=== PATIENT | female | born 1980 | race Caucasian/White ===

== ENCOUNTER 2016-06-30 21:17 | Emergency (ER) | payer BC, OTHER ==
[~2016-06-30] VITALS: Ht 170.2 cm; Wt 94.6 kg
[~2016-06-30 21:17] MED LIST: IBUP-15 PO; LEVO75TA4 PO; OXYC1TAB87 PO; PREN-94 PO
--- OUTSIDE RECORDS SUMMARY | 2016-06-30 21:20 | XMS REPORT | Continuity of Care Document ---
Author Author [facility] Address Unknown Phone Unavailable Allergies Active Description Code Type Severity Reaction Onset Reported/Identified Relationship to Patient Clinical Status Yes aspirin [id number] Drug Allergy Mild Vomiting 01/08/2014 Yes latex [id number] Drug Allergy Mild Rash 01/08/2014 Medications Problems Date Dx Coded Attending Type Code Diagnosis Diagnosed By 01/11/2014 ARPITA VALDES, RAYMUNDO Lambert Ot 244.9 01/11/2014 ARPITA VALDES, RAYMUNDO Lambert Ot 614.6 01/11/2014 ARPITA VALDES, RAYMUNDO Lambert Ot 648.11 01/11/2014 ARPITA VALDES, RAYMUNDO Lambert Ot 648.91 01/11/2014 ARPITA VALDES, RAYMUNDO Lambert Ot 654.21 01/11/2014 ARPITA VALDES, RAYMUNDO Lambert Ot V25.2 01/11/2014 ARPITA VALDES, RAYMUNDO Lambert Ot V27.0 04/13/2015 Ot E03.9 04/20/2015 Ot E03.9 05/25/2015 Ot E03.9 05/28/2015 Ot E03.9 Procedures Results Encounters ACCT No. Visit Date/Time Discharge Status Pt. Type Provider Facility Loc./Unit Complaint [id number] 03/05/2014 12:25:00 2014 23:59:59 CLS Outpatient ZABRINA VALDES, REILLY Alejandro [facility] LAB [id number] 01/08/2014 07:57:00 2013 12:55:00 DIS Inpatient ARPITA VALDES, RAYMUNDO [facility] OB [id number] 12/14/2013 15:11:00 2013 23:59:59 CLS Outpatient [id number] 11/12/2013 13:43:00 2013 23:59:59 CLS Outpatient [id number] 09/09/2013 14:26:00 2013 23:59:59 CLS Outpatient [id number] 08/10/2013 13:09:00 2013 23:59:59 CLS Outpatient [id number] 07/03/2013 10:04:00 2013 23:59:59 CLS Outpatient [id number] 03/25/2015 15:05:00 Document Registration
--- OUTSIDE RECORDS SUMMARY | 2016-06-30 21:26 | XMS REPORT | Continuity of Care Document ---
Author Author [facility] Address Unknown Phone Unavailable Allergies Active Description Code Type Severity Reaction Onset Reported/Identified Relationship to Patient Clinical Status Yes aspirin [id number] Drug Allergy Mild Vomiting 01/08/2014 Yes latex [id number] Drug Allergy Mild Rash 01/08/2014 Medications Problems [...] Status Pt. Type Provider Facility Loc./Unit Complaint [id number] 03/05/2014 12:25:00 2014 23:59:59 CLS Outpatient ZABRINA VALDES, REILLY Alejandro [facility] LAB [id number] 01/08/2014 07:57:00 2013 12:55:00 DIS Inpatient ARPITA VALDES, RAYMUNDO [facility] OB [id number] 12/14/2013 15:11:00 2013 23:59:59 CLS Outpatient [id number] 11/12/2013 13:43:00 2013 23:59:59 CLS Outpatient [id number] 09/09/2013 14:26:00 2013 23:59:59 CLS Outpatient [id number] 08/10/2013 13:09:00 2013 23:59:59 CLS Outpatient [id number] 07/03/2013 10:04:00 2013 23:59:59 CLS Outpatient [id number] 03/25/2015 15:05:00 Document Registration
[2016-06-30] MEDS ORDERED: ONDANSETRON 2 MG/ML (Z0FRAN) 2 ML VIAL IV ONE (21:35)
[2016-06-30] MEDS ORDERED: GI COCKTAIL 55 ML UDC PO ONE (21:35)
[2016-06-30] MEDS ORDERED: SODIUM CHLORIDE FLUSH 10 ML SYR IV PRN (21:35)
[2016-06-30] MEDS ORDERED: SODIUM CHLORIDE FLUSH 3 ML SYR IV PRN (21:35)
[2016-06-30] MEDS ORDERED: ALBU2.5V4 INH (21:53)
[2016-06-30] MEDS ORDERED: ALBU6.7H IH (21:54)
[2016-06-30] MEDS ORDERED: BELLADONNA/PHENOBARBITAL ELIXIR (DONNATAL) 10 ML UDC ONE (22:00)
[2016-06-30] MEDS ORDERED: LIDOCAINE 2% VISCOUS 20ML UDC PO ONE (22:00)
[2016-06-30] MEDS ORDERED: MAG HYDROX/AL HYDROX/SIMETH 400-400-40/5 ML (MAG-AL PLUS XS) 30 ML UDC ONE (22:00)
[2016-06-30 22:18] LABS: BASOPHILS % (AUTO) 0 % (0-2); EOSINOPHILS # (AUTO) 0.1 10^3uL; EOSINOPHILS % (AUTO) 1 % (0-4); LYMPHOCYTES # (AUTO) 2.3 X10^3; MEAN CORPUSCULAR HEMOGLOBIN 28.7 PG (26.0-34.0); MEAN CORPUSCULAR HGB CONC 34.9 g/dL (31.0-37.0); MEAN CORPUSCULAR VOLUME 82 FL (80-100); MEAN PLATELET VOLUME 11.8 FL (6.0-9.5); MONOCYTES # (AUTO) 1.6 X10^3; MONOCYTES % (AUTO) 9 % (3-11); NEUTROPHILS # (AUTO) 13.4 X10^3; NEUTROPHILS % (AUTO) 77 % (51-67); PLATELET COUNT 271 10^3uL (150-450); WHITE BLOOD COUNT 17.55 10^3uL (4.0-11.0)
[2016-06-30] MEDS ORDERED: KETOROLAC 30 MG/ML (TORADOL) 1 ML VIAL IV ONE (22:30)
[2016-06-30 23:03] LABS: ALBUMIN 4.1 g/dL (3.4-5.0); ALKALINE PHOSPHATASE 97 U/L (38-126); AMYLASE* 56 U/L (25-115); ANION GAP 16.1 MEQ/L (3-15); BUN/CREATININE RATIO 13 (10-20); CALCULATED IONIZED CALCIUM 3.7 mg/dL (3.8-4.6); LIPASE* 56 U/L (23-300); TOTAL PROTEIN 7.8 g/dL (6.4-8.5)
[2016-07-01 01:10] LABS: COLOR,URINE Amber; GLUCOSE, URINE (UA) Negative (Negative); LEUKOCYTE ESTERASE ,URINE Negative (Negative)
[2016-07-01 01:32] LABS: BILIRUBIN,URINE 1+ (Negative); CLARITY,URINE Slightly Cloudy
[2016-07-01 01:35] LABS: RBC,URINE None Seen /HPF; URINE CENTRIFUGED VOLUME 12 mL
[2016-07-01] MEDS ORDERED: HYDROmorphone 1 MG/ML (DILAUDID) SYRINGE IV ONE (01:45)
[2016-07-01] MEDS ORDERED: ONDANSETRON 2 MG/ML (Z0FRAN) 2 ML VIAL IV ONE (01:45)
[2016-07-01 02:02] VITALS: BP 144/73
--- NOTE | 2016-07-01 08:16 | Diagnostic Imaging Report ---
INDICATION: Epigastric and back pain. 3 views were obtained. FINDINGS: The heart size is normal. Lungs are clear. Bowel gas pattern is nonspecific. There is no free air. There are no abnormal abdominal calcifications. IMPRESSION: Nonspecific bowel gas pattern. No acute cardiopulmonary abnormality. Dictated by: Dictated on workstation # [id number]
== END 2016-07-01 02:03 | disposition home or self-care (01) ==
LOC: ED 21:21
DX: R10.84 Generalized abdominal pain (principal); F17.210 Nicotine dependence, cigarettes, uncomplicated
CPT/HCPCS: 36415; 74022; 80053; 81003; 81015; 82150; 83690; 84484; 84703; 85025; 86140; 93005; 96361; 96374; 96375; 96376; 99285; J1170; J1885; J2405; J7030; 99283

== ENCOUNTER 2016-07-02 12:59 | Observation (INO) | payer OTHER ==
[2016-07-02] VITALS (12 sets, daily range): BP systolic 102–129; BP diastolic 62–79
[~2016-07-02] VITALS: Ht 170.2 cm; Wt 92.7 kg
--- NOTE | 2016-07-02 11:41 | Diagnostic Imaging Report ---
PROCEDURE: US Gallbladder. TECHNIQUE: Multiple real-time grayscale images were obtained over the right upper quadrant in various projections. INDICATION: Right upper quadrant abdominal pain No focal hepatic abnormality is identified. There is thickening of the gallbladder wall reaching 0.7 cm. In addition, there is an echogenic focus of approximately 1.3 cm in size at the level of the gallbladder neck. No pericholecystic fluid is identified. Common bile duct reaches 0.7 cm in diameter. Pancreas is obscured. No right renal abnormality was documented and there is no evidence of free fluid seen. IMPRESSION: Calculus in the gallbladder neck with gallbladder wall thickening. This may represent developing cholecystitis and clinical correlation is recommended. There is dilatation of the common bile duct as well. This could be related to previous stone passage. Hepatobiliary scan may be of value for assessment of the biliary ductal patency. Dictated by: Dictated on workstation # [id number]
[~2016-07-02 12:59] MED LIST changes: +ALBU2.5V4 INH; +ALBU6.7H IH
--- OUTSIDE RECORDS SUMMARY | 2016-07-02 13:02 | XMS REPORT | Continuity of Care Document ---
Author Author [facility] Address Unknown Phone Unavailable Allergies Active Description Code Type Severity Reaction Onset Reported/Identified Relationship to Patient Clinical Status Yes aspirin [id number] Drug Allergy Mild Vomiting 01/08/2014 Yes latex [id number] Drug Allergy Mild Rash 01/08/2014 Medications Problems Date Dx Coded Attending Type Code Diagnosis Diagnosed By 01/11/2014 ARPITA VALDES, RAYMUNDO Lambert Ot 244.9 01/11/2014 ARPITA VALDES, RAYMUNDO Lambert Ot 614.6 01/11/2014 ARPITA VALDES, RAYMUNDO Lambert Ot 648.11 01/11/2014 ARPITA VALDES, RAYMUNDO Lambert Ot 648.91 01/11/2014 ARPITA VALDES, RAYMUNDO Lambert Ot 654.21 01/11/2014 ARPITA VALDSE, RAYMUNDO Lambert Ot V25.2 01/11/2014 ARPITA VALDES, RAYMUNDO Lambert Ot V27.0 04/13/2015 Ot E03.9 04/20/2015 Ot E03.9 05/25/2015 Ot E03.9 05/28/2015 Ot E03.9 Procedures Results Test Result Range Complete blood count (CBC) with automated white blood cell (WBC) differential - 06/30/16 22:40 Blood automated leukocyte count 17.55 4.0-11.0 Erythrocytes 5.05 4.00-5.00 12.0-16.0;g/dL 14.5 12.0-15.5 Hematocrit 41.50 35.00-45.00 Automated erythrocyte mean corpuscular volume 82 80-100 Mean corpuscular hemoglobin (MCH) determination 28.7 26.0-34.0 Automated erythrocyte mean corpuscular hemoglobin concentration measurement ( mass/volume) 34.9 31.0-37.0 Erythrocyte distribution width 13.3 11.8 -15.6 Automated blood platelet count 271 150- 450 Automated blood platelet mean volume measurement 11.8 6.0-9.5 Automated neutrophil percentage 77 51- 67 Lymphocytes/100 leukocytes 13 20-46 Automated monocyte percentage 9 3-11 Eosinophil count auto 1 0-4 Automated basophil percentage 0 0-2 Automated blood neutrophil count 13.4 Blood lymphocytes count (number/volume) 2.3 Automated blood monocyte count 1.6 Blood absolute eosinophil count 0.1 Basophils 0.0 Serum or plasma choriogonadotropin ( test) detection - 06/30/16 22:40 Serum or plasma choriogonadotropin ( test) detection Negative Negative Comprehensive metabolic panel - 06/30/16 22:40 Sodium measurement 119 70-110 CARBON DIOXIDE 26 22-29 Serum or plasma anion gap 16.1 3-15 BLOOD UREA NITROGEN 13 7-18 CREATININE SERUM 1.00 0.6-1.2 Brucella species antibody panel (IgG, IgM) 13 10-20 Estimated glomerular filtration rate (GFR) 75.9 Estimated glomerular filtration rate (GFR) non- 62.7 OSMOLALITY,CALCULATED 270 280-300 CALCIUM 8.9 8.8-10.8 Calculated ionized calcium measurement 3.7 3.8-4.6 BILIRUBIN,TOTAL 0.8 0.1-1.0 Serum or plasma alkaline phosphatase measurement 97 38-126 ASPARTATE AMINO TRANSFERASE 40 15-37 ALANINE AMINOTRANSFERASE 43 30-65 Serum or plasma total protein measurement 7.8 6.4-8.5 Serum or plasma albumin measurement 4.1 3.4-5.0 Serum or plasma albumin/globulin mass ratio 1.108 1.1-1.8 TROPONIN I* - 06/30/16 22:40 TROPONIN I < 0.012 0.010-0.080 Serum or plasma amylase measurement - 06/30/16 22:40 Serum or plasma amylase measurement 56 25-115 Lipase measurement - 06/30/16 22:40 Lipase measurement 56 23-300 C REACTIVE PROTEIN* - 06/30/16 22:40 C REACTIVE PROTEIN* 3.50 0.0-0.9 UA CULTURE IF INDICATED* - 07/01/16 00:50 COLLECTION METHOD CLEAN CATCH Color of urine by auto Ketty Urine appearance determination Slightly Cloudy Urine pH measurement by automated test strip 7.0 5.0 - 8.0 Specific gravity of urine by automated test strip 1.020 1.005-1.030 Urine protein measurement by test strip (mass/volume) 1+ Negative Urine glucose detection by automated test strip Negative Negative Urine erythrocytes count by automated test strip (number/volume) Negative Negative Urine ketones detection by automated test strip 2+ Negative Urine nitrite detection by test strip Negative Negative Urine total bilirubin detection by automated test strip 1+ Negative Urine urobilinogen measurement by automated test strip (mass/volume) 2.0 0.2-1.0 Urine leukocyte esterase detection by dipstick Negative Negative Microscopic examination of urine - 07/01/16 00:50 Urine volume measurement 12 mL Urine erythrocytes detection by automated method None Seen Automated urine sediment leukocyte count by microscopy (number/high power field ) None Seen Bacteria Rare SQUAMOUS EPITHELIAL CELL,UR 5-10 MUCOUS,URINE 1+ Encounters ACCT No. Visit Date/Time Discharge Status Pt. Type Provider Facility Loc./Unit Complaint [id number] 03/05/2014 12:25:00 2014 23:59:59 CLS Outpatient ZABRINA VALDES, [facility] LAB [id number] 01/08/2014 07:57:00 2013 12:55:00 DIS Inpatient ARPITA VALDES, [facility] OB [id number] 12/14/2013 15:11:00 2013 23:59:59 CLS Outpatient [id number] 11/12/2013 13:43:00 2013 23:59:59 CLS Outpatient [id number] 09/09/2013 14:26:00 2013 23:59:59 CLS Outpatient [id number] 08/10/2013 13:09:00 2013 23:59:59 CLS Outpatient [id number] 07/03/2013 10:04:00 2013 23:59:59 CLS Outpatient [id number] 06/30/2016 22:52:00 Document Registration [id number] 03/25/2015 15:05:00 Document Registration
[2016-07-02] MEDS ORDERED: BUPIVACAINE/EPINEPHRINE 0.5%-1:200,000 (MARCAINE) 30 ML VIAL INJ ONE (13:08)
[2016-07-02] MEDS ORDERED: ceFAZolin 2,000 MG in WATER (STERILE) FOR INJECTION 20 ML IV SCH (13:10)
[2016-07-02 13:17] LABS: MEAN CORPUSCULAR HEMOGLOBIN 28.3 PG (26.0-34.0); MEAN CORPUSCULAR HGB CONC 33.4 g/dL (31.0-37.0); MEAN CORPUSCULAR VOLUME 85 FL (80-100); MEAN PLATELET VOLUME 11.6 FL (6.0-9.5); PLATELET COUNT 233 10^3uL (150-450); WHITE BLOOD COUNT 23.23 10^3uL (4.0-11.0)
[2016-07-02 13:22] LABS: BAND NEUTROPHILS % 2 % (0-6); EOSINOPHILS % 0 % (0-4); LYMPHOCYTES # 1.9 #; MONOCYTES # 0.7 #; MONOCYTES % 3 % (3-11); SEGMENTED NEUTROPHILS % 87 % (51-67); TOTAL CELLS COUNTED 100
[2016-07-02 13:23] LABS: RBC MORPH NORMAL (NORMAL)
[2016-07-02 13:27] LABS: ALBUMIN 4.1 g/dL (3.4-5.0); ANION GAP 17.1 MEQ/L (3-15); CALCULATED IONIZED CALCIUM 3.7 mg/dL (3.8-4.6); TOTAL PROTEIN 8.4 g/dL (6.4-8.5)
[2016-07-02] MEDS: LACTATED RINGERS 1,000 ML IV SCH (13:35)
[2016-07-02] MEDS: SODIUM CHLORIDE FLUSH 3 ML SYR IV PRN (13:35)
[2016-07-02] MEDS ORDERED: ceFAZolin 1000 MG (ANCEF) VIAL ONE (13:36)
[2016-07-02] MEDS ORDERED: SODIUM CHLORIDE VIAL (PF) 20 ML IV ONE (13:36)
[2016-07-02] MEDS ORDERED: MIDAZOLAM 2 MG/2 ML (VERSED) VIAL ONE (14:07)
[2016-07-02] MEDS ORDERED: ALFENTANIL 500 MCG/ML (ALFENTA) 5 ML AMP IV ONE (14:07)
[2016-07-02] MEDS ORDERED: PROPOFOL 20 ML IV ONE (14:08)
[2016-07-02] MEDS ORDERED: SUCCINYLCHOLINE 20 MG/ML 10 ML VIAL ONE (14:21)
[2016-07-02] MEDS ORDERED: diphenhydrAMINE 50 MG/ML INJ (BENADRYL) ONE (14:32)
[2016-07-02] MEDS ORDERED: ONDANSETRON 2 MG/ML (Z0FRAN) 2 ML VIAL ONE (14:32)
[2016-07-02] MEDS ORDERED: NEOSTIGMINE 1 MG/ML SYRINGE ONE (14:55)
[2016-07-02] MEDS ORDERED: GLYCOPYRROLATE 0.2 MG/ML (ROBINUL) 1 ML VIAL ONE (14:55)
[2016-07-02] MEDS ORDERED: ROCURONIUM 50 MG/5 ML (ZEMURON) VIAL IV ONE (15:13)
[2016-07-02] MEDS ORDERED: HYDROmorphone 2 MG/ML (DILAUDID) 1 ML SYRINGE ONE (16:27)
[2016-07-02] MEDS ORDERED: METOCLOPRAMIDE 10 MG/2 ML (REGLAN) VIAL IV PRN (16:55)
[2016-07-02] MEDS ORDERED: ONDANSETRON 2 MG/ML (Z0FRAN) 2 ML VIAL IV PRN (16:55)
--- NOTE | 2016-07-02 17:17 | Diagnostic Imaging Report ---
INDICATION: Undergoing cholecystectomy. FINDINGS: Single intraoperative cholangiogram images are submitted. There is cannulation of the extra hepatic biliary tree. Images demonstrate contrast opacification of the biliary system. Biliary tree is not significantly dilated. There was no persistent filling defect to indicate a retained stone. Flow was present into the duodenum. IMPRESSION: Negative laparoscopic cholangiogram. Correlation with intraoperative findings recommended. Dictated by: Dictated on workstation # [id number]
--- NOTE | 2016-07-02 17:30 | NUR ---
Pt admitted to 319 via bed accompanied by Lizzeth, OR RNs. Pt is quite groggy still. Skin warm, dry. 5 lap incisions; drsgs CDI. Resprs nonlabored, even on 3L NC, 96 %. Titrated to 2L. SL to RAC intact. Will continue to monitor.
--- NOTE | 2016-07-02 18:20 | NUR ---
PRN Ultram given at this time for c/o incisional pain rated 6/10. Pt continues to be groggy, but rouses easily. Post op VS continue. SL intact. Denies other needs.
[2016-07-02] MEDS: morphine INJ 4 MG/ML 1 ML SYRINGE IV PRN (21:22)
--- NOTE | 2016-07-03 | NUR ---
Pt c/o migraine. O2 sat 85% on RA. HR 135. Oxygen applied at 2L. O2 sat increases to 92%. PRN ultram provided for pain.
[2016-07-03 00:03] VITALS: BP 125/80
--- NOTE | 2016-07-03 00:10 | NUR ---
Heart rate now 125.
[2016-07-03] MEDS: morphine INJ 4 MG/ML 1 ML SYRINGE IV PRN ×2 (01:00→07:38)
[2016-07-03 03:48] VITALS: BP 120/76
--- NOTE | 2016-07-03 06:25 | NUR ---
Pt rests in short intervals throughout the night. c/o incisional abd pain and "migraine." PRN medications provided. Noted that pt's heart rate has remained in 120s throughout the shift. Denies chest pain. Cont on 2L oxygen per nc d/t low o2 sat.
[2016-07-03] MEDS ORDERED: SODIUM CHLORIDE FLUSH 10 ML ONE (07:34)
[2016-07-03 07:36] VITALS: BP 116/73
[2016-07-03] MEDS ORDERED: TRM50T PO (08:02)
--- NOTE | 2016-07-03 08:15 | Progress Note-A/P (E) ---
Progress Note Subjective Subjective Has been tachycardic overnight; temp this morning is 100.0. Complains of headache along with abdominal pain. Taking liquids fairly well. Objective VS Vital Signs Date Time Temp Pulse Resp B/P Pulse Ox O2 Delivery O2 Flow Rate FiO2 07/03/16 07:36 100.0 122 18 116/73 94 Room air 07/03/16 03:48 2.00 I&O I & O Past 24 hrs 07/03/16 07:00 Intake Total 900 ml Output Total 775 ml Balance 125 ml Intake Oral 900 ml Output Urine Total 775 ml Current Medications Current Medications Lactated Ringer's 1,000 ml @ 50 mls/hr Q20H IV Last administered on 07/02/16 13 :35; Admin Dose 50 MLS/HR; Start 07/02/16 at 13:05 Morphine Sulfate 1-4MG IV Q1H PRN PAIN Q1H PRN IV Last administered on 07:38; Admin Dose 2 MG; Start 07/02/16 at 16:55 Tramadol HCl 100 mg Q4H PRN PO Last administered on 07/03/16 06:15; Admin Dose 100 MG; Start 07/02/16 at 16:55 Ondansetron HCl 4 mg Q6H PRN IV; Start 07/02/16 at 16:55 Metoclopramide HCl 10 mg Q6H PRN IV; Start 07/02/16 at 16:55 General Awake, alert, no acute distress. CV S1S2 RRR Lungs Clear bilaterally Abdomen Distended, dressings intact. Extremities No edema Integumentary No jaundice Neuro Grossly normal Labs, Most Recent- Laboratory Results Past 24 Hrs 07/02/16 13:10: Absolute Band Neutrophils 0.5, Alanine Aminotransferase (ALT/SGPT) 47, Albumin 4.1, Albumin/Globulin Ratio 0.953, Alkaline Phosphatase 143, Anion Gap 17.1, Aspartate Amino Transf (AST/SGOT) 24, BUN/Creatinine Ratio 8, Band Neutrophils % 2, Basophils # (Auto) , Basophils # (Manual) 0.0, Basophils % (Manual) 0, Basophils (%) (Auto) , Blood Morphology Comment Normal, Blood Urea Nitrogen 8, Calcium Level 9.2, Calcium/Ionized Calcium Ratio 3.7, Calculated Osmolality 264 , Carbon Dioxide Level 24, Chloride Level 101, Creatinine 0.95, Differential Total Cells Counted 100, Eosinophils # 0.0, Eosinophils # (Auto) , Eosinophils % (Manual) 0, Eosinophils (%) (Auto) , Estimat Glomerular Filtration Rate 80.5, Estimated GFR (Non- 66.6, Glucose Level 96, Hematocrit 44.30, Hemoglobin 14.8, Lipase 35, Lymphocytes # 1.9, Lymphocytes # (Auto) , Lymphocytes % (Manual) 8, Lymphocytes (%) (Auto) , Mean Corpuscular Hemoglobin 28.3, Mean Corpuscular Hemoglobin Concent 33.4, Mean Corpuscular Volume 85, Mean Platelet Volume 11.6, Metamyelocytes % 0, Monocytes # 0.7, Monocytes # ( Auto) , Monocytes % (Manual) 3, Monocytes (%) (Auto) , Neutrophils # 20.2, Neutrophils # (Auto) , Neutrophils (%) (Auto) , Platelet Count 233, Potassium Level 4.2, Red Blood Count 5.23, Red Cell Distribution Width 13.5, Segmented Neutrophils % 87, Serum Test, Qualitative Negative, Sodium Level 137, Total Bilirubin 1.6, Total Protein 8.4, White Blood Count 23.23 24 Hr Result Diagram CBC BMP Last 24 Hrs 07/02/16 13:10 Assessment POD#1 lap cholecystectomy Gallbladder hydrops Plan Will check labs this morning and administer fluid bolus. Tachycardia may be secondary to dehdration and hypovolemia or pain. Will follow closely. DONNA JEFFERY MD July 03, 2016 08:15
[2016-07-03 08:19] LABS: MEAN CORPUSCULAR HEMOGLOBIN 28.3 PG (26.0-34.0); MEAN CORPUSCULAR HGB CONC 32.9 g/dL (31.0-37.0); MEAN CORPUSCULAR VOLUME 86 FL (80-100); MEAN PLATELET VOLUME 11.9 FL (6.0-9.5); PLATELET COUNT 234 10^3uL (150-450); WHITE BLOOD COUNT 20.57 10^3uL (4.0-11.0)
[2016-07-03 08:38] LABS: ALBUMIN 3.5 g/dL (3.4-5.0); ANION GAP 16.8 MEQ/L (3-15); BAND NEUTROPHILS % 0 % (0-6); CALCULATED IONIZED CALCIUM 3.8 mg/dL (3.8-4.6); EOSINOPHILS % 0 % (0-4); LYMPHOCYTES # 1.2 #; MONOCYTES # 1.8 #; MONOCYTES % 9 % (3-11); RBC MORPH NORMAL (NORMAL); SEGMENTED NEUTROPHILS % 85 % (51-67); TOTAL CELLS COUNTED 100; TOTAL PROTEIN 7.2 g/dL (6.4-8.5)
[2016-07-03] MEDS: KETOROLAC 30 MG/ML (TORADOL) 1 ML VIAL IV PRN ×3 (08:59→23:22)
[2016-07-03] MEDS: LACTATED RINGERS 1,000 ML IV SCH (09:05)
--- NOTE | 2016-07-03 09:09 | OPERATIVE REPORT ---
DATE OF OPERATION: 07/02/2016 PRE-OPERATIVE DIAGNOSIS: Acute cholelithiasis POST-OPERATIVE DIAGNOSIS: Gallbladder hydrops OPERATIVE PROCEDURE: Laparoscopic cholecystectomy with intraoperative cholangiogram SURGEON: Calvin Bishop MD GRAY TENDER: ABEL Corral ANESTHESIA: General endotracheal anesthetic INDICATION: The patient is a 35-year-old referred by Tayler Dominguez and Dr. Delgado for abdominal pain, leukocytosis, and imaging studies suggesting cholecystitis. She was taken to the operating room urgently for laparoscopic cholecystectomy. DESCRIPTION OF PROCEDURE: The patient was informed of the risks and benefits and agreed to proceed. She was administered preoperative IV antibiotics and then taken to the operating room. There she was placed supine on a standard operating table and administered general endotracheal anesthetic. When properly anesthetized the abdomen was prepped and draped in the standard sterile fashion. The open technique was used to access the peritoneal cavity through a curvilinear incision above the umbilicus and #0 Vicryl stay sutures were placed in the fascia. A 10-mm port was inserted and CO2 was insufflated to 15 mmHg. The Olympus 10-mm 3-D laparoscope was used. The patient was placed in reverse Trendelenburg position and turned slightly to the left. There were adhesions between the omentum and the edge of the right lobe of the liver anteriorly that had to be in order to expose the gallbladder. This was done mostly with blunt dissection and careful use of the laparoscopic scissors. The gallbladder was seen underneath the omentum. It was tense and distended and very edematous. Additional trocars were placed in the in the right upper quadrant and two separate 5-mm trocars. These were used for retraction throughout the case. The 3-prong grasper was used to manipulate the fundus of the gallbladder after the gallbladder was aspirated of its contents with the laparoscopic needle. The contents were mostly clear mucus consistent with gallbladder hydrops. The fundus was then able to be retracted superiorly. The lower portion of the gallbladder was freed of adhesions carefully using a combination of blunt dissection and the laparoscopic scissors, but most of this was facilitated with the suction device. There was significant soft tissue below the infundibulum of the gallbladder that obscured the view, and therefore a 10-mm port was placed in the right lower quadrant for the fan retractor, which aided in our visualization by retracting these soft tissue structures slightly inferiorly. I was then able to begin dissection using the suction device along the inferior edge of the infundibulum medially and then laterally using cautery to open the thickened peritoneum, exposing the gallbladder edge. This dissection was carried more proximally on the gallbladder on its lateral aspect and then careful meticulous dissection with electrocautery along the infundibulum allowed me to expose the cystic duct. Some blunt dissection was used to create a window posterior to the duct, within the triangle of Calot. The cystic artery could be seen within the triangle, and there was significant edema in the rest of the tissue including the peritoneum that made visualization of the entire triangle difficult. The cystic duct appeared to be fairly small and could be seen entering the gallbladder, and so i was comfortable placing a clip in it proximally. A cholangiogram was then obtained through the cystic duct that showed normal intrahepatic and extrahepatic ducts with no filling defects or extravasation. The catheter was removed from the cystic duct. Two clips were placed distally on the cystic duct and it was divided between the proximal clips. Additional gentle blunt dissection and cautery were used to isolate the cystic artery, which was clipped twice proximally, once distally and divided between the distal clips. The gallbladder was then able to be carefully removed from its attachments to the liver, which was more difficult than usual due to the degree of inflammation. The gallbladder was peeled off the gallbladder fossa and cautery was used in significant amounts to accomplish this. At the dome of the gallbladder, the wall was entered and there was some slightly purulent drainage that leaked out into the gallbladder fossa. There were no stones spilled from the gallbladder. This drainage was later suctioned and then the area was washed with sterile saline. The gallbladder was removed using an endobag under direct visualization through the umbilical port site. A small portion of the posterior wall of the gallbladder was still adherent in the gallbladder fossa, and this was removed without difficulty using blunt dissection along with cautery. This was removed. Inspection of the gallbladder fossa revealed no bleeding. We copiously irrigated the upper quadrant around the right lobe of the liver and beneath it, aspirating the contents. The clips were intact on the cystic duct and the cystic artery. The fan retractor had been removed earlier in the case, and this trocar was removed under direct vision from the right lower quadrant. No bleeding was seen from the opening. Due to the tangent nature of the tract, and the proximity to the distended right colon, I decided not to close the fascia using the Andrew-Lester device. The upper trocars were removed under direct vision and no bleeding was seen from the abdominal wall. The umbilical port was removed after the CO2 was let out of the abdomen. The #0 Vicryl stay sutures were tied at the umbical site and one additional #0 Vicryl suture was placed to completely close the fascial defect. The skin was then closed at all 5 incisions with subcuticular 4-0 Monocryl and dressings were applied. The patient tolerated the procedure without complications. She went to recovery in stable condition.
--- NOTE | 2016-07-03 09:17 | NUR ---
Pt up to bathroom, voids 300ml john urine. IVF bolus of NS @999ml/hr infuisng to LAC without difficulty. Still rates migraine and abd pain 10/11- Ketoralac 30mg IV given as ordered. Titrated O2 from 2L nc to 3L nc due to sats only 85% on 2L nc. O2 increases to 87-88% on 3L nc- will turn up to 4L nc. Pt states she is unable to take deep breaths because of abd pain. Sixto Bright RT notified. HR is 117 at this time. will cont to monitor.
--- NOTE | 2016-07-03 10:28 | NUR ---
Med Rec completed via conversation with patient.
--- NOTE | 2016-07-03 10:34 | NUR ---
SpO2 97% on 4Lpm nasal cannula. States she is doing better after pain med given. Decreased O2 to 3Lpm. Instructed on IS and worked at 500-750 X 6. States too much pain to do more. Encouraged to work on q1hr and importance of taking deep breaths. SpO2 93-94% on 3Lpm nasal cannula.
--- NOTE | 2016-07-03 11:30 | NUR ---
Pt given foam ear pads for canula, IS encouraged, Pt has poor effort with no breath hold. I explained the need for deep breathing and the possible outcome if deep breathing isn't done, She still didnt want to give much effort due to pain. Pt achieved 250 ml of 2800 predicted.
[2016-07-03 12:32] VITALS: BP 107/64
[2016-07-03] MEDS ORDERED: CALCIUM CARBONATE CHEWABLE 300 MG (TUMS) TABLET PO PRN (16:15)
[2016-07-03 16:25] VITALS: BP 120/73
--- NOTE | 2016-07-03 16:36 | NUR ---
@ 1000 NS Bolus complete- SL IV at this time. Remains 4L nc. Pt has been indep in room today. After morning dose of Ketoralac pt states pain is improved at 5/10- ambulated halls x1/2 lap. Changed dressing to umbilicus- saturated. @1630 Pt given Tums 3 tabs for acid reflux. States she would like to take Ketoralac again around 1730 to help her sleep tonight Addendum: 07/03/16 at 1638 by Spring Cardona RN @1600- HR 96, O2 sats 92% RA.
--- NOTE | 2016-07-03 17:39 | NUR ---
Ketoralac 30mg IV given for increasing headache and abd pain rated 08/11. Addendum: 07/03/16 at 1741 by Spring Cardona RN O2 placed at 2L nc- Sats on RA 86%
--- NOTE | 2016-07-03 18:43 | NUR ---
Pt ambulating halls indep on RA- Ambulatory O2 sats 84%. 2L n/c O2 placed and ambulating. Bernard RT notified. Back to room 2L nc. Will cont to monitor.
--- NOTE | 2016-07-03 19:00 | NUR ---
Pt is on 2 l/min NC with SPO2 91%, IS encouraged, 500 ml with moderate breath hold. Pt is resisting full breaths due to pain.
--- NOTE | 2016-07-03 19:30 | NUR ---
Pt is resting in bed watching tv, alert and oriented x 4, wearing 2LPM via NC, rates pain 3/10 at this time. Denies needs at this time. Call light is in reach. Will continue to monitor.
[2016-07-03 19:57] VITALS: BP 115/75
--- NOTE | 2016-07-03 23:45 | NUR ---
Pt is up to restroom and reports having pain. Rates 7/10, gave Toradol 30mg SIVP for discomfort at this time. Will continue to monitor.
[2016-07-04 00:13] VITALS: BP 129/85
[2016-07-04 03:50] VITALS: BP 115/75
--- NOTE | 2016-07-04 04:43 | NUR ---
Pt is resting in bed asleep, does not appear in pain or discomfort at this time. Will continue to monitor.
[2016-07-04] MEDS: LACTATED RINGERS 1,000 ML IV SCH (04:46)
[2016-07-04] MEDS: KETOROLAC 30 MG/ML (TORADOL) 1 ML VIAL IV PRN (07:54)
[2016-07-04] MEDS: SODIUM CHLORIDE FLUSH 3 ML SYR IV PRN (07:55)
[2016-07-04 08:00] VITALS: BP 139/64
--- NOTE | 2016-07-04 08:02 | NUR ---
Pt up on edge of bed, asking for pain meds- rates abd pain /- Ketoralac 30mg IV given as ordered. IV SL intact and patent to RAC. Remains on 2L nc O2 sats 96%, RR 18, HR 95. Hands/Fingers WNL- Cap. refill < 3seconds. Pt gets up to chair for bfst- Titrated for trial on RA- will cont to monitor.
[2016-07-04] MEDS ORDERED: IBUPROFEN 800 MG (MOTRIN) TAB PO PRN (08:20)
[2016-07-04] MEDS ORDERED: ACETAMINOPHEN 325 MG TAB (TYLENOL) PO PRN (08:20)
--- NOTE | 2016-07-04 08:20 | Progress Note-A/P (E) ---
Progress Note Subjective Subjective Sitting up in chair. Has had 7/10 pain this morning, still responding to Toradol. Her O2 sats have been an issue. She drops into the 80s with ambulation on room air, even down into the 70s once. Maintains high 90s on 2L NC oxygen. No shortness of breath or discomfort in chest. Objective VS Vital Signs Date Time Temp Pulse Resp B/P Pulse Ox O2 Delivery O2 Flow Rate FiO2 07/04/16 03:50 97.5 102 20 115/75 91 Nasal cannula 07/03/16 03:48 2.00 Current Medications Current Medications Morphine Sulfate 1-4MG IV Q1H PRN PAIN Q1H PRN IV Last administered on 07:38; Admin Dose 2 MG; Start 07/02/16 at 16:55 Tramadol HCl 100 mg Q4H PRN PO Last administered on 07/03/16 06:15; Admin Dose 100 MG; Start 07/02/16 at 16:55 Ondansetron HCl 4 mg Q6H PRN IV; Start 07/02/16 at 16:55 Metoclopramide HCl 10 mg Q6H PRN IV; Start 07/02/16 at 16:55 Ketorolac Tromethamine 30 mg Q6H PRN IV Last administered on 07/04/16 07:54; Admin Dose 30 MG; Start 07/03/16 at 08:15; Stop 07/08/16 at 08:14 Calcium Carbonate 900 mg Q6H PRN PO Last administered on 07/03/16 16:34; Admin Dose 900 MG; Start 07/03/16 at 16:15 General Awake, alert, no acute distress. CV S1S2 RRR Lungs Diminished at bases, L>R. Abdomen Distended, dressings intact. Extremities No edema Integumentary No jaundice Neuro Grossly normal Assessment POD#2 lap cholecystectomy Gallbladder hydrops Hypoxia Chronic smoker Plan I'll order a CXR this morning to evaluate for pneumonia. Will advance diet and order ibuprofen and Tylenol. DONNA JEFFERY MD July 04, 2016 08:20
--- NOTE | 2016-07-04 09:43 | NUR ---
NUTRITION ASSESSMENT Level 1 Patient: Pranav Mitchell Age/Sex: 35/F Date Screened: 07-04-16 Weight: 203.9#/92.7 kg Height: 67 inches Primary Diagnosis: lap carlos Diet Order: FL Relevant labs: N/A Food allergies: N Nutrition Assessment Criteria Age over 80: N Body Mass Index (BMI) under 19: N Admission Screening Indicates Risk? N Moderate/High Risk Diagnosis: 3 points TPN or PPN: N NPO or clear liquid diet: N Serum Glucose <70 or >180: N/A Hgb A1c >6.7: N/A Total: 3 points Risk Screen: __ Patient at low nutritional risk based on available data; reevaluate in 5-7 days _X_ Patient at moderate nutritional risk based on available data; reevaluate in 3-5 days __ Patient at high nutritional risk; complete Nutrition Assessment within 48 hours of admission. Comments: Patient's diet to be advanced today, per surgeon. This is POD #2, but O2 sats are dropping. No GI concerns at this time; will reassess as documented above.
--- NOTE | 2016-07-04 10:27 | NUR ---
Pt has been 92% on RA with Ear probe by Tonja RT. Pt has been down to Rad for CXR.
--- NOTE | 2016-07-04 11:38 | NUR ---
O2 sats 91% on RA while resting in bed. Pt is shower- will then remove dressings to lap incision on abd and leave open to air per Dr. Bishop
--- NOTE | 2016-07-04 11:46 | Diagnostic Imaging Report ---
INDICATION: Postoperative hypoxia. COMPARISON: 08/08/2004 FINDINGS: 2 views of the chest are obtained. Lung volumes are low. Allowing for this, heart size and vasculature appear unremarkable. There is no pneumothorax. There is bilateral basilar patchy opacity more pronounced in the left lateral lung base and in the right perihilar region. This is likely atelectasis. Pneumonia would be difficult to entirely exclude. Suspect trace left pleural effusion. The osseous structures appear unremarkable. There are surgical clips in the right upper quadrant from cholecystectomy. IMPRESSION: Low lung volumes with left basilar and right perihilar airspace disease likely atelectasis. Pneumonia would be difficult to exclude. Suspect trace left pleural effusion. Dictated by: Dictated on workstation # [id number]
--- OUTSIDE RECORDS SUMMARY | 2016-07-04 12:35 | XMS REPORT | Continuity of Care Document ---
Author Author [facility] Address Unknown Phone Unavailable Allergies Active Description Code Type Severity Reaction Onset Reported/Identified Relationship to Patient Clinical Status Yes aspirin [id number] Drug Allergy Mild Vomiting 01/08/2014 Yes latex [id number] Drug Allergy Mild Rash 01/08/2014 Medications Problems [...] Rare SQUAMOUS EPITHELIAL CELL,UR 5-10 MUCOUS,URINE 1+ Complete blood count (CBC) with automated white blood cell (WBC) differential - 07/02/16 13:10 Blood automated leukocyte count 23.23 4.0-11.0 Erythrocytes 5.23 4.00-5.00 12.0-16.0;g/dL 14.8 12.0-15.5 Hematocrit 44.30 35.00-45.00 Automated erythrocyte mean corpuscular volume 85 80-100 Mean corpuscular hemoglobin (MCH) determination 28.3 26.0-34.0 Automated erythrocyte mean corpuscular hemoglobin concentration measurement ( mass/volume) 33.4 31.0-37.0 Erythrocyte distribution width 13.5 11.8 -15.6 Automated blood platelet count 233 150- 450 Automated blood platelet mean volume measurement 11.6 6.0-9.5 Complete blood count, platelets with manual differential - 07/02/16 13:10 Total cell count 100 Blood segmented neutrophils percentage 87 51-67 Blood band neutrophil count as percentage of total leukocytes 2 0-6 LYMPHOCYTES % 8 20-46 Automated monocyte percentage 3 3-11 Eosinophil count auto 0 0-4 Basophils 0 0-2 Manual blood metamyelocytes/100 leukocytes 0 0-1 NEUTROPHILS(SEG) 20.2 NEUTROPHILS # BANDS 0.5 Blood lymphocytes manual count (number/volume) 1.9 Automated blood monocyte count 0.7 Blood absolute eosinophil count 0.0 Basophils 0.0 Erythrocyte morphology assessment NORMAL NORMAL Comprehensive metabolic panel - 07/02/16 13:10 Sodium measurement 96 70-110 CARBON DIOXIDE 24 22-29 Serum or plasma anion gap 17.1 3-15 BLOOD UREA NITROGEN 8 7-18 CREATININE SERUM 0.95 0.6-1.2 Brucella species antibody panel (IgG, IgM) 8 10-20 Estimated glomerular filtration rate (GFR) 80.5 Estimated glomerular filtration rate (GFR) non- 66.6 OSMOLALITY,CALCULATED 264 280-300 CALCIUM 9.2 8.8-10.8 Calculated ionized calcium measurement 3.7 3.8-4.6 BILIRUBIN,TOTAL 1.6 0.1-1.0 Serum or plasma alkaline phosphatase measurement 143 38-126 ASPARTATE AMINO TRANSFERASE 24 15-37 ALANINE AMINOTRANSFERASE 47 30-65 Serum or plasma total protein measurement 8.4 6.4-8.5 Serum or plasma albumin measurement 4.1 3.4-5.0 Serum or plasma albumin/globulin mass ratio 0.953 1.1-1.8 Lipase measurement - 07/02/16 13:10 Lipase measurement 35 23-300 Serum or plasma choriogonadotropin ( test) detection - 07/02/16 13:10 Serum or plasma choriogonadotropin ( test) detection Negative Negative Complete blood count (CBC) with automated white blood cell (WBC) differential - 07/03/16 08:11 Blood automated leukocyte count 20.57 4.0-11.0 Erythrocytes 4.46 4.00-5.00 12.0-16.0;g/dL 12.6 12.0-15.5 Hematocrit 38.30 35.00-45.00 Automated erythrocyte mean corpuscular volume 86 80-100 Mean corpuscular hemoglobin (MCH) determination 28.3 26.0-34.0 Automated erythrocyte mean corpuscular hemoglobin concentration measurement ( mass/volume) 32.9 31.0-37.0 Erythrocyte distribution width 13.8 11.8 -15.6 Automated blood platelet count 234 150- 450 Automated blood platelet mean volume measurement 11.9 6.0-9.5 Complete blood count, platelets with manual differential - 07/03/16 08:11 Total cell count 100 Blood segmented neutrophils percentage 85 51-67 Blood band neutrophil count as percentage of total leukocytes 0 0-6 LYMPHOCYTES % 6 20-46 Automated monocyte percentage 9 3-11 Eosinophil count auto 0 0-4 Basophils 0 0-2 Manual blood metamyelocytes/100 leukocytes 0 0-1 NEUTROPHILS(SEG) 17.5 NEUTROPHILS # BANDS 0.0 Blood lymphocytes manual count (number/volume) 1.2 Automated blood monocyte count 1.8 Blood absolute eosinophil count 0.0 Basophils 0.0 Erythrocyte morphology assessment NORMAL NORMAL Comprehensive metabolic panel - 07/03/16 08:11 Sodium measurement 97 70-110 CARBON DIOXIDE 22 22-29 Serum or plasma anion gap 16.8 3-15 BLOOD UREA NITROGEN 9 7-18 CREATININE SERUM 0.93 0.6-1.2 Brucella species antibody panel (IgG, IgM) 10 10-20 Estimated glomerular filtration rate (GFR) 82.5 Estimated glomerular filtration rate (GFR) non- 68.2 OSMOLALITY,CALCULATED 257 280-300 CALCIUM 8.8 8.8-10.8 Calculated ionized calcium measurement 3.8 3.8-4.6 BILIRUBIN,TOTAL 1.2 0.1-1.0 Serum or plasma alkaline phosphatase measurement 131 38-126 ASPARTATE AMINO TRANSFERASE 18 15-37 ALANINE AMINOTRANSFERASE 38 30-65 Serum or plasma total protein measurement 7.2 6.4-8.5 Serum or plasma albumin measurement 3.5 3.4-5.0 Serum or plasma albumin/globulin mass ratio 0.945 1.1-1.8 Lipase measurement - 07/03/16 08:11 Lipase measurement 40 23-300 Encounters ACCT No. Visit Date/Time Discharge Status Pt. Type Provider Facility Loc./Unit Complaint [id number] 03/05/2014 12:25:00 2014 23:59:59 CLS Outpatient ZABRINA VALDES, [facility] LAB [id number] 01/08/2014 07:57:00 2013 12:55:00 DIS Inpatient ARPITA VALDES, [facility] OB [id number] 12/14/2013 15:11:00 2013 23:59:59 CLS Outpatient [id number] 11/12/2013 13:43:00 2013 23:59:59 CLS Outpatient [id number] 09/09/2013 14:26:00 2013 23:59:59 CLS Outpatient [id number] 08/10/2013 13:09:00 2013 23:59:59 CLS Outpatient [id number] 07/03/2013 10:04:00 2013 23:59:59 CLS Outpatient [id number] 07/02/2016 13:18:00 Document Registration [id number] 06/30/2016 22:52:00 Document Registration [id number] 03/25/2015 15:05:00 Document Registration
[2016-07-04] MEDS ORDERED: ACETAMINOPHEN 325 MG TAB (TYLENOL) ONE (13:08)
[2016-07-04] MEDS ORDERED: IBUPROFEN 800 MG (MOTRIN) TAB PO ONE (14:25)
--- NOTE | 2016-07-04 15:51 | NUR ---
Pt has ambulated [facility]. @1310- Tylenol 650mg PO given for headache @1430- Ibuprofen 800mg PO given for continued headache.
[2016-07-04 16:00] VITALS: BP 114/73
--- NOTE | 2016-07-04 16:07 | Discharge Instructions (E) ---
Discharge Instructions Instructions May shower. Don't soak or swim for two weeks. Call or return if pain increasing, if redness or drainage develops at incisions , if you develop persistent nausea, vomiting, fever, or chills, or if other concerns arise. Activity Instructions No lifting more than 20lbs for two week.s Doctor's Appointment Follow up with Dr. Bishop in clinic in 1-2 weeks. Discharge Diet: Regular DONNA BISHOP MD July 04, 2016 16:07
--- NOTE | 2016-07-04 16:26 | NUR ---
Discharge instructions reviewed with patient. Verbalizes understanding. [facility] called for vogel of Tramadol- Tyesha Pérez Tech at [facility] reports to this nurse that Tramadol script will be $4 to fill- Pt states she will take script and fill for pain control at home. Script for Tramadol given to patient in her yellow envelope. 20g IV dc'd from [facility]- tip intact, site without redness/swelling. Belongings gathered, patient dressed- will come to desk when ready for dismissal.
--- NOTE | 2016-07-04 16:47 | NUR ---
Pt dismissed to home via ambulation accompanied by friend and Beronica STARK. Belongings with patient.
== END 2016-07-04 16:47 | disposition home or self-care (01) ==
LOC: ASC 12:59 → MED/SURG 17:08 → ASC 17:09 → MED/SURG 17:09
PROVIDERS: ADMIT Surgery; ATTEND Surgery
PROC: 0FT44ZZ Resection of Gallbladder, Percutaneous Endoscopic Approach (ICD-10-PCS; principal; 2016-07-02)
DX: K80.12 Calculus of gallbladder with acute and chronic cholecystitis without obstruction (principal); K82.1 Hydrops of gallbladder; R09.02 Hypoxemia; J45.909 Unspecified asthma, uncomplicated; E03.9 Hypothyroidism, unspecified; F17.210 Nicotine dependence, cigarettes, uncomplicated
CPT/HCPCS: 36415; 47563; 71020; 74300; 76705; 80053; 83690; 84703; 85025; 94760; J0330; J1170; J1200; J1885; J2250; J2270; J2710; J3490; J7030; J7120; 96361; 96374; 96375; 96376